=== PATIENT | male | born 1950 | race Caucasian/White ===

== ENCOUNTER 2018-02-09 12:06 | Day surgery (SDC) | payer OTHER, BC ==
[2018-02-09] MEDS ORDERED: NS 1,000 ML IV ONE ×3 (12:25→14:27)
--- NOTE | 2018-02-09 12:25 | CPEKG ---
Heart Rate: 135 RR Interval: 444 P-R Interval: 139 QRSD Interval: 116 QT Interval: 352 QTC Interval: 528 P Baldwin: 0 QRS Baldwin: -84 T Wave Baldwin: 269 EKG Severity - ABNORMAL ECG - EKG Impression: SINUS TACHYCARDIA EKG Impression: NONSPECIFIC IVCD WITH LAD EKG Impression: PROBABLE INFERIOR INFARCT, AGE INDETERMINATE Electronically Signed By: Renae Dhillon 12-Feb-2018 22:32:53
[2018-02-09 12:43] LABS: PLATELET COUNT 173 10^3/uL (150-400)
--- NOTE | 2018-02-09 12:58 | EDPHY ---
HPI/HX/ROS/PE/MDM Narrative: CHIEF COMPLAINT: Rapid heart rate, lightheadedness HPI: The patient is a 67 y/o male complaining of a rapid heart rate for the last 6-8 weeks. He and his spend the flores in [place] at low elevation and return to [address] here in [facility] the rest of the year. Since returning 6-8 weeks ago he's noticed more fatigued than normal [place] and has been measuring his heart rate with his 's pulse ox. He says, "my heart rate has been holding steady around 130" every time he has measured it since returned to [place]. He does not have the sensation of a rapid or irregular heart beat, but does occasionally feel lightheaded and more generally describes feeling "off." He has never had an issue like this previously and denies cardiac or thyroid disease history. No dyspnea at rest, leg swelling, chest pain, fever, recent illness, or recent trauma. He is normally healthy; remote history of prostate cancer. REVIEW OF SYSTEMS: Aside from elements discussed in the HPI, a comprehensive 10-point review of systems was reviewed and is negative. PMH: Prostate cancer treated and in remission SOCIAL HISTORY: . Lives [place] [address] in the [facility], lives in [place] in the winter. PHYSICAL EXAM: General:Patient is alert, in no acute distress. ENT:Eyes are normal to inspection. ENT inspection normal. Neck: Normal inspection. Full range of motion. Respiratory:No respiratory distress. Breath sounds normal bilaterally. Cardiovascular: Tachycardic irregular rate and rhythm. Strong peripheral pulses. Normal cap refill. Abdomen:The abdomen is nontender to palpation. There are no peritoneal signs. Back: Normal to inspection. No tenderness to palpation. Skin: Normal color. No rash. Warm and dry. Extremities: Normal appearance. Full range of motion. Neuro: Oriented x3. Normal motor function. Normal sensory function. ED Course: This is a healthy and well-appearing 67 y/o male presenting with a 6-8 week history of a rapid heart rate around 130 with associated fatigue and occasional lightheadedness. He cannot sense that he is in a rapid rhythm. Apart from tachycardia, exam is unremarkable. Plan for IV, labs, EKG, chest x-ray. The 12 lead EKG was interpreted by myself. Sinus tachycardia rate 130. See hard copy and/or "tracemaster" electronic copy for interpretation. Chest x-ray: no infiltrate. The 12 lead EKG was interpreted by myself. Rapid atrial flutter with variable rate. See hard copy and/or "tracemaster" electronic copy for interpretation. 1345: Consulted with GIUSEPPE White from cardiology. He agrees with my recommendation for admission and their service will assess him during admission. Discussed recommendation with patient. He is reluctant to be admitted because his is undergoing medical treatments and he needs to be available to her. Will speak with cardiology about options. 1359: Consulted with Dr. Hopper, cardiology, in the ED. Since patient does not want to be admitted, he recommends pretreating with Xarelto here and admitting directly to the [facility] for cardioversion this afternoon and then discharge home from the [facility] this evening if patient is amenable. - Data Points Imaging Results: Imaging Impressions Chest X-Ray 02/09/18 12:25 Impression: Hyperexpansion suggests possible airways disease. Imaging: I viewed and interpreted images myself Laboratory Results: Laboratory Results 02/09/18 12:30 02/09/18 12:30 02/09/18 02/09/18 02/09/18 12:35 12:30 12:30 WBC RBC Hgb Hct MCV MCH MCHC RDW Plt Count MPV Neut % (Auto) Lymph % (Auto) [place] % (Auto) Eos % (Auto) Baso % (Auto) Nucleat RBC Rel Count Absolute Neuts (auto) Absolute Lymphs (auto) Absolute Monos (auto) Absolute Eos (auto) Absolute Basos (auto) Absolute Nucleated RBC Immature Gran % Immature Gran # PT 13.6 SEC SEC (12.0-15.0) INR 1.02 (0.83-1.16) APTT 27.2 SEC SEC (23.0-38.0) D-Dimer < 0.27 ug/mLFEU ug/mLFEU (0.00-0.50) Sodium 143 mEq/L mEq/L (135-145) Potassium 4.3 mEq/L mEq/L (3.3-5.0) Chloride 108 mEq/L mEq/L (97-110) Carbon Dioxide 19 mEq/l L mEq/l (22-31) Anion Gap 16 mEq/L mEq/L (8-16) BUN 23 mg/dL mg/dL (7-23) Creatinine 1.0 mg/dL mg/dL (0.7-1.3) Estimated GFR > 60 Glucose 132 mg/dL H mg/dL (70-100) Calcium 9.3 mg/dL mg/dL (8.5-10.4) POC Troponin I 0.00 ng/mL ng/mL (0.00-0.08) TSH 1.390 uIU/mL uIU/mL (0.465-4.680) 02/09/18 12:30 WBC 5.21 10^3/uL 10^3/uL (3.80-9.50) RBC 5.28 10^6/uL 10^6/uL (4.40-6.38) Hgb 17.3 g/dL g/dL (13.7-17.5) Hct 48.4 % % (40.0-51.0) MCV 91.7 fL fL (81.5-99.8) MCH 32.8 pg pg (27.9-34.1) MCHC 35.7 g/dL g/dL (32.4-36.7) RDW 12.0 % % (11.5-15.2) Plt Count 173 10^3/uL 10^3/uL (150-400) MPV 10.3 fL fL (8.7-11.7) Neut % (Auto) 59.4 % % (39.3-74.2) Lymph % (Auto) 29.6 % % (15.0-45.0) [place] % (Auto) 9.2 % % (4.5-13.0) Eos % (Auto) 0.8 % % (0.6-7.6) Baso % (Auto) 0.8 % % (0.3-1.7) Nucleat RBC Rel Count 0.0 % % (0.0-0.2) Absolute Neuts (auto) 3.10 10^3/uL 10^3/uL (1.70-6.50) Absolute Lymphs (auto) 1.54 10^3/uL 10^3/uL (1.00-3.00) Absolute Monos (auto) 0.48 10^3/uL 10^3/uL (0.30-0.80) Absolute Eos (auto) 0.04 10^3/uL 10^3/uL (0.03-0.40) Absolute Basos (auto) 0.04 10^3/uL 10^3/uL (0.02-0.10) Absolute Nucleated RBC 0.00 10^3/uL 10^3/uL (0-0.01) Immature Gran % 0.2 % % (0.0-1.1) Immature Gran # 0.01 10^3/uL 10^3/uL (0.00-0.10) PT INR APTT D-Dimer Sodium Potassium Chloride Carbon Dioxide Anion Gap BUN Creatinine Estimated GFR Glucose Calcium POC Troponin I TSH Medications Given: Discontinued Medications Apixaban (Eliquis) 5 mg PO EDNOW ONE Stop: 02/09/18 14:02 Last Admin: 02/09/18 14:44 Dose: 5 mg Sodium Chloride (Ns) 1,000 mls @ 0 mls/hr IV EDNOW ONE; Wide Open PRN Reason: Protocol Stop: 02/09/18 12:26 Last Admin: 02/09/18 12:41 Dose: 1,000 mls Point of Care Test Results: Chemistry 02/09/18 12:35 POC Troponin I 0.00 ng/mL ng/mL (0.00-0.08) General Time Seen by Provider: 02/09/18 12:25 Initial Vital Signs: Initial Vital Signs Temperature (C) 36.6 C 02/09/18 12:11 Heart Rate 132 H 02/09/18 12:11 Respiratory Rate 16 02/09/18 12:11 Blood Pressure 128/96 H 02/09/18 12:11 O2 Sat (%) 95 02/09/18 12:11 O2 Delivery Mode Room Air Allergies/Adverse Reactions: No Allergies [NKDA] Allergy (Verified 02/09/18 12:11) DUST Allergy (Intermediate, Uncoded 02/09/18 12:11) SNEEZY SEASONAL Allergy (Intermediate, Uncoded 02/09/18 12:11) SNEEZY Home Medications: Medication Instructions Recorded NK [No Known Home Meds] 02/09/18 Departure - Departure Disposition: [facility] Acute Clinical Impression: Atrial flutter with rapid ventricular response Condition: Fair Referrals: Danielle Chaudhry MD [Primary Care Provider] - As per Instructions Report Scribed for: Jose Alejandro Kramer Report Scribed by: Atiya Anna Date of Report: 02/09/18 Time of Report: 13:05 Physician Review and Approval Statement: Portions of this note were transcribed by an ED scribe. I personally performed the history, physical exam, and medical decision making; and confirm the accuracy of the information in the transcribed note.
--- NOTE | 2018-02-09 13:18 | CPEKG ---
Heart Rate: 109 RR Interval: 550 QRSD Interval: 94 QT Interval: 404 QTC Interval: 545 QRS Steptoe: 259 T Wave Steptoe: -84 EKG Severity - ABNORMAL ECG - EKG Impression: ATRIAL FLUTTER, A-RATE 263 EKG Impression: MARKEDLY POSTERIOR QRS AXIS EKG Impression: LOW VOLTAGE IN FRONTAL LEADS EKG Impression: PROLONGED QT INTERVAL Electronically Signed By: Renae Dhillon 12-Feb-2018 22:32:53
[2018-02-09] MEDS ORDERED: DILTIAZEM 25 MG/5 ML VIAL IVP ONE (13:46)
[2018-02-09] MEDS ORDERED: APIXABAN 5 MG TAB PO ONE (14:01)
[2018-02-09 14:13] LABS: INR 1.02 (0.83-1.16); PROTIME(PATIENT) 13.6 SEC (12.0-15.0)
[2018-02-09] MEDS ORDERED: ATROPINE SULFATE 1 MG/10 ML SYR IVP ONE ×2 (14:27)
[2018-02-09 15:09] VITALS: BP 132/89
--- NOTE | 2018-02-09 15:12 | GCON ---
[f rep st] CONSULTATION CARDIOLOGY CONSULTATION DATE OF CONSULTATION: 02/09/2018 REQUESTING PHYSICIAN: Jose Alejandro Kramer MD INDICATIONS: Atrial flutter. HISTORY OF PRESENT ILLNESS: The patient is a pleasant 67-year-old male seen in the emergency departm ent with palpitations. He and his have spent the summer down in [place]. They returned several months ago. He notes that he has had difficulties with exertional dyspnea and effort intolerance si nce returning. He uses his 's pulse ox occasionally and checks his oxygenation. He noted that h is oxygen levels have been normal. However, his heart rate has been elevated at about 130-150 beats per minute for the last several months. He has been concerned about this in light of his symptoms of dyspnea. He has not had any chest pain, chest pressure, heaviness, or edema. Because of this, he c tate to the emergency department today. On arrival here, his blood pressure was 128/96 with a heart r ate of 132 beats per minute. Room air saturation 95%. Temperature was afebrile. His initial electr ocardiogram demonstrates atrial flutter with a resting heart rate of 135 beats per minute. His QRS c omplex appears to be normal. At the present time, he states that he feels well as long as he is seat ed. Interestingly, he has not had palpitations. REVIEW OF SYSTEMS: A full 10-point review of systems was performed and is otherwise negative. PAST MEDICAL HISTORY: Prostate cancer, status post surgical resection. PAST SURGICAL HISTORY: History of inguinal hernia repair and surgery for prostate cancer. ALLERGIES: None. SOCIAL HISTORY: He is . His currently has lymphoma, and [facility]. He does not smoke. He drinks about 3 beers a day. He is active at his baseline. He likes to play pickleball and go for walks with his . He and his live here in [place] during the , up near [facility]. FAMILY HISTORY: Noncontributory. CURRENT MEDICATIONS: None. PHYSICAL EXAMINATION: VITAL SIGNS: Blood pressure 128/96, heart rate 132, respiratory rate 16, O2 s ats 95% on room air. He is afebrile. GENERAL: A healthy white male in no acute distress. HEENT: Normocephalic, atraumatic. Anicteric sclerae. Oropharynx unremarkable. Carotids 2+ bilaterally wit h no bruits. No jugular venous distention, adenopathy, or thyromegaly. RESPIRATORY: Breathing easi ly, resting comfortably, using no accessory muscles. On auscultation, he has clear lung brown bilat erally. CARDIAC: Precordial inspection is unremarkable. PMI is nondisplaced. On auscultation, he is tachycardic with a regular rhythm. He has no murmurs, gallops, or rubs. ABDOMEN: Soft without m asses or hepatosplenomegaly. His abdominal aorta is nonpalpable. EXTREMITIES: Warm and dry and pin k. He has no edema. VASCULATURE: 2+ radial, dorsal pedal, and posterior tibial pulses. DATABASE: ECG is as described above. His CBC is normal. INR is 1.02. D-dimer less than 0.27. Sod ium 143, potassium 4.3, BUN 23, creatinine 1.0. TSH 1.39. IMPRESSION: The patient is 67 years old and presents to the emergency department with complaints of an elevated heart rate associated with effort intolerance and symptoms of exertional dyspnea. On exa mination, he is in atrial flutter with a rapid ventricular response. Examination is otherwise unrema rkable. He has no indications of congestive heart failure. His TSH was noted to be normal. There i s no indication at this time of deep venous thrombosis/pulmonary emboli. He and I discussed the nature of this arrhythmia, and specifically, how the discovery of this arrhyth olya relates to his symptoms. PLAN: 1. He was given Eliquis 5 mg, and he will be started on 5 mg twice daily. 2. I will schedule him for a ANSLEY/cardioversion. This can be done later today. 3. As an outpatient, I would like him to have regular echocardiogram and stress test. 4. Further recommendation will be made pending the outcome of that study. /[id number]/MODL
[2018-02-09] MEDS ORDERED: LIDOCAINE 2% 5 ML SDV ONE (15:20)
[2018-02-09] MEDS ORDERED: PROPOFOL 200 MG/20 ML VIAL ONE ×2 (15:20)
--- NOTE | 2018-02-09 15:27 | PDANEPAE ---
ANE History of Present Illness A-flutter ANE Past Medical History - Pulmonary History Hx Oxygen in Use at Home: No - Endocrine History Hx Diabetes: No ANE Review of Systems Review of Systems: ANE Patient History - Allergies Allergies/Adverse Reactions: No Allergies [NKDA] Allergy (Verified 02/09/18 12:11) DUST Allergy (Intermediate, Uncoded 02/09/18 12:11) SNEEZY SEASONAL Allergy (Intermediate, Uncoded 02/09/18 12:11) SNEEZY - Home Medications Home Medications: NK [No Known Home Meds] 02/09/18 [Last Taken Unknown] - Anes Hx Anes Hx: no prior problems - Smoking Hx Smoking Status: Never smoked ANE Labs/Vital Signs - Labs Result Diagrams: 02/09/18 12:30 02/09/18 12:30 - Vital Signs Blood Pressure: 132/89 Heart Rate: 144 Respiratory Rate: 16 O2 Sat (%): 98 Height: 187.96 cm Weight: 88.451 kg ANE Physical Exam - Airway Neck exam: FROM Mallampati Score: Class 1 Mouth exam: normal dental/mouth exam - Pulmonary Pulmonary: no respiratory distress - Cardiovascular Cardiovascular: irregularly irregular - ASA Status ASA Status: II ANE Anesthesia Plan Anesthesia Plan: MAC
--- NOTE | 2018-02-09 15:43 | PDTEE1 ---
ANSLEY Cardioversion Procedure Procedure: electrical cardioversion Indications: other (AFlutter.) Consent: signed and in chart Anticoagulation: eliquis Procedural Details: Pads were placed in anterior-posterior position. ANSLEY probe was advanced and standard images obtained. There is no evidence of left atrial or left atrial appendage thrombus. Synchronized cardioversion attempt #1: 50J Results: normal sinus rhythm Conclusions: successful ANSLEY cardioversion Patient Problems: Problems Problem Status Onset Atrial flutter with rapid ventricular response Acute
--- NOTE | 2018-02-09 15:47 | POSTANESTH ---
Post Anesthetic Evaluation Cardiovascular Status: Normal, Stable, Similar to Pre-Op Cond Respiratory Status: Normal, Stable, Similar to Pre-op Cond. Level of Consciousness/Mental Status: Can Participate in Eval, Alert and Oriented Pain Control: Adequate, Prn Tx Ordered Nausea/Vomiting Control: Adequate, Prn Tx Ordered Complications Possibly Related to Anesthesia: None Noted
--- NOTE | 2018-02-09 15:54 | CPEKG ---
Heart Rate: 75 RR Interval: 800 P-R Interval: 172 QRSD Interval: 100 QT Interval: 428 QTC Interval: 479 P Pulteney: 54 QRS Pulteney: 0 T Wave Pulteney: -7 EKG Severity - BORDERLINE ECG - EKG Impression: SINUS RHYTHM EKG Impression: BORDERLINE T ABNORMALITIES, DIFFUSE LEADS EKG Impression: BORDERLINE PROLONGED QT INTERVAL Electronically Signed By: Renae Dhillon 12-Feb-2018 22:32:53
--- NOTE | 2018-02-09 16:17 | ECHO ---
[email or web address] [address] [address] Main: [phone] Fax: Transesophageal Echocardiography Name: ROBERT SHAIKH MR#: [id number] Study Date: 02/09/2018 Study Time: 03:29 PM Date of : 1950 Age: 67 year(s) Height: 188 cm (74 in.) Weight: 88.45 kg (195 lb.) BSA: 2.15 m2 Gender: Male Examination: Indication: Image Quality: Adequate Contrast: Requested by: Allan Hopper Heart Rate: Rhythm: BP: / Procedure Staff Insolvency Practitioner: Sofya Duarte RDCS Reading Physician: Allan Hopper MD Requesting Provider: ANSLEY Exam Details Patient Consent: Risks, alternatives of procedure explained to patient, informed consent obtained. Conclusions: Patient was in atrial flutter at the time of the study. He left ventricle is normal in size and function. The ejection fraction is 55-60% with normal wall motion. Valvular anatomy is normal. There is trivial mitral and tricuspid regurgitation. Atrial dimensions appear normal. Left atrial appendage is free of thrombus. Interatrial septum is intact. The patient underwent cardioversion following this procedure. Measurements: Chambers Valvular Assessment AV/MV Valvular Assessment TV/PV Normal Normal Normal Name Value Range Name Value Range Name Value Range Visual EF: 55 % Additional Measurements: Findings: Left Ventricle: Normal size left ventricle. No LV hypertrophy. Normal global systolic LV function. The ejection fraction is visually estimated to be 55 %. No regional wall motion abnormality. Unable to assess diastolic dysfunction. Right Ventricle: Normal size right ventricle. Left Atrium: The left atrium is normal in size. Patient: ROBERT SHAIKH Study Date: 02/09/2018 Page 1 of 2 03:29 PM Left Atrial Appendage: The left atrial appendage is unilobular. Good color flow doppler in the left atrial appendage. Normal PW-Doppler flow pattern. No thrombus in left appendage. Right Atrium: The right atrium is normal in size. Mitral Valve: The mitral valve is normal in appearance and function. Mild mitral valve regurgitation is present. No mitral stenosis is present. Aortic Valve: The aortic valve is normal in appearance and function. There is no significant aortic valve regurgitation. No aortic valve stenosis is present. Tricuspid Valve: The tricuspid valve is normal in appearance and function. There is no significant tricuspid valve regurgitation. Pulmonic Valve: The pulmonic valve is normal in appearance and function. Aorta: The aorta is normal. Pericardium: No pericardial effusion. l1n (No Signature Object) Patient: ROBERT SHAIKH Study Date: 02/09/2018 Page 2 of 2 03:29 PM [id number]
[2018-02-09] MEDS ORDERED: APIXABAN 5 MG TAB PO SCH (21:00)
== END 2018-02-09 16:56 | disposition home or self-care (01) ==
LOC: FCATH 15:20
PROVIDERS: ATTEND Internal Medicine Cardiovascular Disease
PROC: 5A2204Z Restoration of Cardiac Rhythm, Single (ICD-10-PCS; principal; 2018-02-09)
PROC: B245ZZ4 Ultrasonography of Left Heart, Transesophageal (ICD-10-PCS; principal; 2018-02-09)
DX: I48.92 Unspecified atrial flutter (principal); Z85.46 Personal history of malignant neoplasm of prostate
CPT/HCPCS: 84484-PO; J2704

== ENCOUNTER → 2018-03-06 | Outpatient (CLI) | payer OTHER, BC | LOC: BHFA 09:30 | PROVIDERS: ATTEND Internal Medicine Interventional Cardiology | DX: I48.92 Unspecified atrial flutter (principal); R42 Dizziness and giddiness ==

== ENCOUNTER → 2018-03-14 | Outpatient (CLI) | payer OTHER, BC | LOC: BHFA 14:00 | PROVIDERS: ATTEND Internal Medicine Cardiovascular Disease | DX: I48.92 Unspecified atrial flutter (principal); R00.2 Palpitations ==

== ENCOUNTER → 2018-10-18 | Outpatient (CLI) | payer OTHER, BC | LOC: CIMAGING 10:16 | PROVIDERS: ATTEND Specialist | DX: N20.0 Calculus of kidney (principal); K76.9 Liver disease, unspecified | CPT/HCPCS: 74176-PO ==